=== PATIENT | female | born 1990 ===

== ENCOUNTER → 2020-04-16 | Outpatient (CLI) | payer BC ==
[2020-04-18 17:00] LABS: CORONAVIRUS (COVID19) CSH-NRL Negative (Negative)
== END | disposition home or self-care (01) ==
LOC: LAB SHORT 12:28 → LAB 12:28
PROVIDERS: Chiropractor
DX: J02.9 Acute pharyngitis, unspecified (principal); Z20.822 Contact with and (suspected) exposure to COVID-19
CPT/HCPCS: 87081; 87147; U0003

== ENCOUNTER → 2020-05-06 | Outpatient (CLI) | payer BC | END | disposition home or self-care (01) | LOC: LAB SHORT 14:40 → LAB 14:40 | DX: D22.5 Melanocytic nevi of trunk (principal) | CPT/HCPCS: 88305 ==